=== PATIENT | female | born 1985 | race Two or more races ===

== ENCOUNTER 2017-07-27 00:38 | Emergency (ER) | payer SELFPAY ==
--- NOTE | 2017-07-27 00:51 | ER Document Report ---
HPI - HPI Patient complains to provider of: Severe sore throat Onset: Other - Several hours Pain Level: 5 Context: 31-year-old female was sitting and watching TV tonight when she developed a severe sore throat and painful swallowing. She does not feel any foreign body it is just extremely painful to swallow. No fever or chills. No runny nose or cough. Associated Symptoms: None Exacerbated by: Other - Swallowing Relieved by: Denies Similar symptoms previously: No Recently seen / treated by doctor: No - ROS ROS below otherwise negative: Yes Systems Reviewed and Negative: Yes All other systems reviewed and negative - EENT EENT: REPORTS: Sore Throat Past Medical History - General Information source: Patient - Social History Smoking Status: Current Every Day Smoker Frequency of alcohol use: None Drug Abuse: None Lives with: Spouse/Significant other Family History: Reviewed & Not Pertinent Patient has suicidal ideation: No Patient has homicidal ideation: No - Medical History Medical History: Negative Renal/ Medical History: Denies: Hx Peritoneal Dialysis Surgical Hx: Negative Vertical Provider Document - CONSTITUTIONAL Agree With Documented VS: Yes Exam Limitations: No Limitations - INFECTION CONTROL TRAVEL OUTSIDE OF THE [place] IN LAST 30 DAYS: No - HEENT HEENT: negative: Conjuctival Injection, Pharyngeal Exudate, Pharyngeal Erythema - NECK Neck: Supple, Thyroid Normal. negative: Lymphadenopathy-Left, Lymphadenopathy- Right - RESPIRATORY Respiratory: Breath Sounds Normal, No Respiratory Distress - CARDIOVASCULAR Cardiovascular: Regular Rate, Regular Rhythm - MUSCULOSKELETAL/EXTREMETIES Musculoskeletal/Extremeties: MAEW - NEURO Level of Consciousness: Awake, Alert - DERM Integumentary: Warm, Dry, No Rash Course - Re-evaluation Re-evalutation: 07/27/17 01:30 Rapid strep is negative, throat culture is pending. Patient states the pain is really not changed but she wants to take sleeping pills when she gets home and go to sleep. 07/27/17 01:33 - Vital Signs Vital signs: Temp Pulse Resp BP Pulse Ox 98.6 F 76 16 124/79 100 07/27/17 00:42 07/27/17 00:42 07/27/17 00:42 07/27/17 00:42 07/27/17 00:42 Discharge - Discharge Clinical Impression: Odynophagia, Sore throat Condition: Good Disposition: HOME, SELF-CARE Instructions: Sore Throat ([facility]), Ibuprofen (General) ([facility]), Acetaminophen, Warm Packs ([facility]) Additional Instructions: The rapid strep is negative in the throat culture is pending Return to the emergency room if worse Motrin for pain and inflammation Tylenol for pain Chloraseptic spray for pain Prescriptions: Ibuprofen [Motrin 800 mg Tablet] 800 mg PO Q8HP PRN #30 tablet PRN Reason: Forms: Return to Work
[2017-07-27] MEDS ORDERED: LIDOCAINE 2% VISCOUS SOLN 20 ML UDCUP PO ONE (01:03)
[2017-07-27] MEDS ORDERED: ONDANSETRON 4 MG TAB.RAPDIS PO ONE (01:03)
[2017-07-27] MEDS ORDERED: ACETAMINOPHEN 325 MG TABLET PO ONE (01:03)
[2017-07-27] MEDS ORDERED: IBUPROFEN 800 MG TABLET PO ONE (01:03)
[2017-07-27 01:49] VITALS: BP 112/77
== END 2017-07-27 01:49 | disposition home or self-care (01) ==
LOC: ER 00:38
DX: R13.10 Dysphagia, unspecified (principal); J02.9 Acute pharyngitis, unspecified; F17.200 Nicotine dependence, unspecified, uncomplicated
CPT/HCPCS: 99283; 87070; 87880; S0119; J3490